=== PATIENT | male | born 1990 | race Caucasian/White ===

== ENCOUNTER 2016-06-24 21:27 | Emergency (ER) | payer SELFPAY ==
--- NOTE | 2016-06-24 21:58 | EDM.PDOC ---
ED HPI LOWER BACK PAIN/INJURY - General Chief Complaint: Back Pain or Injury Stated Complaint: UPPER RIGHT LEG PAIN Time Seen by Provider: 06/24/16 21:48 - History of Present Illness INITIAL COMMENTS - FREE TEXT/NARRATIVE: Peripheral no presents emergency room with back pain. Patient has long history of back pain secondary scoliosis. He's been bothered with this for at least the last 10-12 years on an intermittent basis. The last month he's had increasing pain in his low back with some pain numbness and tingling down his right leg. His pain has been getting worse. He seen chiropractor this does not seem to help. The compression therapy does seem to help a little bit. Patient was seen in the clinic was started on prednisone this did not seem to help. He takes ibuprofen 800 mg 3 times a day this takes the edge off. Patient recently had images done at the chiropractor's office that showed a 50% joint space reduction in his lumbar spine. Uncertain level. Patient has not had any loss of bowel or bladder control. The patient works through the day and usually does all right his symptoms are usually at night. No loss of bowel or bladder control - Related Data Allergies/ADRs: Allergies Allergy/AdvReac Type Severity Reaction Status Date / Time shellfish derived Allergy Airway Verified 01/13/15 16:17 Tightness Home Meds: Home Meds Cyclobenzaprine [Flexeril] 10 mg PO BEDTIME #14 tablet 06/24/16 [Rx] predniSONE [Prednisone] 50 mg PO DAILY 06/24/16 [History] Past Medical History - Past Health History Medical/Surgical History: Denies Medical/Surgical History Other Musculoskeletal History: scoliosis Other Neuro History: states it is from scoliosis Social & Family History - Family History Family Medical History: Noncontributory - Tobacco Use Smoking Status *Q: Never Smoker Second Hand Smoke Exposure: No - Caffeine Use Caffeine Use: Reports: Coffee - Recreational Drug Use Recreational Drug Use: No ED ROS GENERAL - Review of Systems Review Of Systems: See Below Constitutional: Reports: no symptoms Respiratory: Reports: No Symptoms Cardiovascular: Reports: No symptoms GI/Abdominal: Reports: No symptoms : Reports: no symptoms Musculoskeletal: Reports: back pain Neurological: Reports: Other (Radicular type pain down the right leg) ED EXAM,LOWER BACK PAIN/INJURY - Physical Exam Exam: See Below Exam Limited By: No limitations General Appearance: alert, no apparent distress Head: atraumatic, normocephalic Neck: normal inspection, supple, non-tender, full range of motion. No: lymphadenopathy (L), lymphadenopathy (R) Respiratory/Chest: no respiratory distress, lungs clear, normal breath sounds Cardiovascular: regular rate, rhythm, no edema, no murmur Back Exam: muscle spasm, other (Significant discomfort and spasm noted in the right paraspinous muscles from the mid thoracic spine on down. Patient is too uncomfortable to get in the supine position to do straight leg raises with the patient in the sitting position patient tolerates knee flexion to about 50 bilaterally and then developed pain in the buttocks bilaterally.). No: vertebral tenderness Course - Vital Signs Last Recorded V/S: Last Vital Signs Temp 36.3 C 06/24/16 21:35 Pulse 88 06/24/16 21:35 Resp 18 06/24/16 21:35 BP 147/105 H 06/24/16 21:35 Pulse Ox 99 06/24/16 21:35 - Orders/Labs/Meds Meds: Medications Discontinued Medications Generic Name Dose Route Start Last Admin Trade Name Hanny PRN Reason Stop Dose Admin Cyclobenzaprine HCl 10 mg 06/24/16 22:18 06/24/16 22:23 Flexeril PO 06/24/16 22:19 10 mg ONETIME ONE Administration Departure - Departure Time of Disposition: 22:22 Disposition: Home, Self-Care 01 Clinical Impression: Low back pain, Scoliosis Prescriptions: Cyclobenzaprine [Flexeril] 10 mg PO BEDTIME #14 tablet Referrals: PCP,None [Primary Care Provider] - Forms: ED Department Discharge Additional Instructions: Return to emergency room if any questions or problems. Followup in the clinic in the next couple of days to establish and seek further evaluation depending on how you're treatment goes. Continue your ibuprofen 800 mg 3 times daily. You've been started on Flexeril 10 mg one in the evenings this medication can cause sedation so allow a 12 hours after taking it before driving or returning to work.
[2016-06-24] MEDS ORDERED: Cyclobenzaprine 10 MG Tab PO ONE (22:18)
[2016-06-24 22:48] VITALS: BP 122/74
== END 2016-06-24 22:35 | disposition home or self-care (01) ==
LOC: JD.ED 21:27
DX: M41.9 Scoliosis, unspecified (principal); Z79.899 Other long term (current) drug therapy; Z91.013 Allergy to seafood
CPT/HCPCS: 99283; A9270